=== PATIENT | female | born 1970 | race Caucasian/White ===

== ENCOUNTER 2023-08-15 07:10 | Outpatient (OUT) | payer BC, SELFPAY ==
[2023-08-15 08:06] LABS: Basophils Absolute Auto 0.1 10^3/uL (0.0-0.1); Basophils Percent Auto 1.2 % (0.2-2.0); Eosinophils Absolute Auto 0.2 10^3/uL (0.0-0.7); Eosinophils Percent Auto 4.3 % (0.9-7.0); Hemoglobin 12.9 g/dL (12.0-16.0); Immature Granulocytes Abs Auto 0.01 10^3/uL (0.00-0.03); Immature Granulocytes Pct Auto 0.2 % (0.0-0.5); Lymphocytes Absolute Auto 1.7 10^3/uL (1.2-3.8); Lymphocytes Percent Auto 41.4 % (20.5-60.0); Mean Corpuscular HGB Conc 32.3 g/dL (29.9-35.2); Mean Corpuscular Hemoglobin 29.1 pg (26.7-34.0); Mean Corpuscular Volume 90.3 fL (81.0-99.0); Mean Platelet Volume 10.5 fL (9.5-13.5); Monocytes Absolute Auto 0.4 10^3/uL (0.3-0.8); Monocytes Percent Auto 9.6 % (1.7-12.0); Neutrophils Absolute Auto 1.8 10^3/uL (1.4-6.5); Neutrophils Percent Auto 43.3 % (43.0-75.0); Platelet Count 268 10^3/uL (150-450); Red Blood Count 4.43 10^6/uL (4.20-5.40); Red Cell Distribution Width 13.4 % (11.0-15.0); White Blood Count 4.2 10^3/uL (4.0-11.0)
[2023-08-15 08:13] LABS: Alanine Aminotransferase 23 U/L (14-59); Albumin Globulin Ratio 1.1; Albumin Level 3.6 g/dL (3.4-5.0); Alkaline Phosphatase 64 U/L (46-116); Anion Gap 12.2; Aspartate Amino Transferase 12 U/L (15-37); BUN Creatinine Ratio 12.8; Bilirubin Total 0.5 mg/dL (0.2-1.0); Calcium 8.3 mg/dL (8.5-10.1); Chloride 107 mmol/L (98-107); Chol HDL Ratio 2.3; Cholesterol 177 mg/dL (<=200); Estimated GFR (African America >60 (>=60); Estimated GFR (Non-African Ame >60 (>=60); Globulin 3.3 g/dL; Glucose 94 mg/dL (74-106); HDL Cholesterol 77 mg/dL (40-60); Potassium 4.2 mmol/L (3.5-5.1); Sodium 144 mmol/L (136-145); Total Protein 6.9 g/dL (6.4-8.2); Triglycerides 129 mg/dL (<=150); VLDL CHOLESTEROL 25.8 mg/dL
[2023-08-15 08:29] LABS: Free T4 1.26 ng/dL (0.76-1.46)
== END 2023-08-15 07:11 | disposition home or self-care (01) ==
LOC: LAB 07:15
DX: Z00.00 Encounter for general adult medical examination without abnormal findings (principal); E07.9 Disorder of thyroid, unspecified
CPT/HCPCS: 36415; 80053; 80061; 84439; 84443; 85025

== ENCOUNTER 2024-03-23 13:58 | Outpatient (OUT) | payer BC, SELFPAY | END 2024-03-23 13:59 | disposition home or self-care (01) | LOC: MN 13:59 | DX: R63.4 Abnormal weight loss (principal); Z68.38 Body mass index [BMI] 38.0-38.9, adult | CPT/HCPCS: 97802 ==

== ENCOUNTER 2024-06-19 10:57 | Emergency (ER) | payer BC, SELFPAY ==
[2024-06-19] VITALS (10 sets, daily range): BP systolic 138–193; BP diastolic 82–95; PULSE 59–72; TEMP 36.2; O2SAT 99–100; BMI 37.8
--- NOTE | 2024-06-19 11:10 | ECG_ITS ---
[facility] Test Date: 2024-06-19 Pat Name: RAIMUNDO RODRIGUEZ Department: Room: - Gender: Female [employer] D[employer]: : 1970 Requested By: [id number] Order Number: [id number] Reading MD: SHWETHA SELBY Measurements Intervals [place] Rate: 69 P: 46 ND: 190 QRS: 23 QRSD: 88 T: 37 QT: 398 QTc: 416 Interpretive Statements 1100 Sinus rhythm 8102 Low QRS voltage in chest leads 9120 atypical ECG Electronically Signed On 06-21-2024 12:37:59 EDT by SHWETHA SELBY
[2024-06-19 11:35] LABS: Basophils Absolute Auto 0.1 10^3/uL (0.0-0.1); Basophils Percent Auto 1.5 % (0.2-2.0); Eosinophils Absolute Auto 0.2 10^3/uL (0.0-0.7); Eosinophils Percent Auto 4.9 % (0.9-7.0); Hematocrit 40.4 % (36.0-48.0); Hemoglobin 13.4 g/dL (12.0-16.0); Immature Granulocytes Abs Auto 0.01 10^3/uL (0.00-0.03); Immature Granulocytes Pct Auto 0.2 % (0.0-0.5); Lymphocytes Percent Auto 43.3 % (20.5-60.0); Mean Corpuscular HGB Conc 33.2 g/dL (29.9-35.2); Mean Corpuscular Volume 87.4 fL (81.0-99.0); Mean Platelet Volume 10.8 fL (9.5-13.5); Monocytes Absolute Auto 0.4 10^3/uL (0.3-0.8); Monocytes Percent Auto 8.4 % (1.7-12.0); Neutrophils Percent Auto 41.7 % (43.0-75.0); Platelet Count 251 10^3/uL (150-450); Red Blood Count 4.62 10^6/uL (4.20-5.40); Red Cell Distribution Width 13.4 % (11.0-15.0); White Blood Count 4.7 10^3/uL (4.0-11.0)
[2024-06-19 11:44] LABS: Alanine Aminotransferase 23 U/L (14-59); Albumin Level 3.5 g/dL (3.4-5.0); Alkaline Phosphatase 73 U/L (46-116); Anion Gap 13.8; Aspartate Amino Transferase 20 U/L (15-37); BUN Creatinine Ratio 8.8; Bilirubin Total 0.8 mg/dL (0.2-1.0); Calcium 8.9 mg/dL (8.5-10.1); Carbon Dioxide 25.9 mmol/L (21.0-32.0); Chloride 104 mmol/L (98-107); Estimated GFR (African America >60 (>=60 mL/min/1.73m^2); Estimated GFR (Non-African Ame >60 (>=60 mL/min/1.73m^2); Globulin 3.5 g/dL; Glucose 77 mg/dL (74-106); Potassium 3.7 mmol/L (3.5-5.1); Sodium 140 mmol/L (136-145)
[2024-06-19 11:46] LABS: Troponin I High Sensitivity <4.0 pg/mL (4.0-51.3)
--- NOTE | 2024-06-19 11:59 | CT_ITS ---
[address] [address] Patient Name: RAIMUNDO RODRIGUEZ MRN: [id number] date: 1970 Sex: F Assigned Patient Location: ER Current Patient Location: Accession/Order Number: [id number] Exam Date: 06/19/2024 12:09 Report Date: 06/19/2024 13:39 At the request of: PARDEEP EL Procedure: CT head/brain wo con CT head without contrast, 06/19/2024. HISTORY: Blurred vision. Headache. COMPARISON: None. TECHNIQUE: Noncontrast axial CT images obtained through the head. Reconstructions obtained in the sagittal and coronal planes. Dose reduction techniques were achieved by using automated exposure control and/or adjustment of mA and/or kV according to patient size and/or use of iterative reconstruction technique. FINDINGS: Paranasal sinuses clear. Mastoid air cells clear. Skull base intact. No skull lesion. Extracranial soft tissue structures are unremarkable. No hydrocephalus. No mass effect. No shift of midline. No acute hemorrhage. No mass. Crowley matter and white matter differentiation intact. CT/CT head/brain wo con IMPRESSION: Normal CT of the head. No acute findings. Electronically authenticated by: CHRISTINE CHO Date: 06/19/2024 13:39
--- NOTE | 2024-06-19 11:59 | ED.GENADUL1 ---
HPI HPI - General Adult General Chief complaint: Chest Pain Stated complaint: HIGH BLOOD PRESSURE Time Seen by Provider: 06/19/24 11:17 Source: patient Mode of arrival: walk-in Limitations: no limitations History of Present Illness HPI narrative: Patient have no previous known past medical history is coming to the ER with a right-sided headache according to her it was stabbing, noted that she have also elevated blood pressure at home, the patient started yelling yesterday at someone at work and apparently started having the headache while she was angry She denies any nausea vomiting or any other complaint and she mentioned that she had some blurry vision yesterday when she was angry The patient denies any chest pain at any time also denies any history of high blood pressure Related Data Allergies Allergy/AdvReac Type Severity Reaction Status Date / Time No Known Drug Allergies Allergy Verified 06/19/24 11:02 Opioid HPI Opioid Management Most Recent Opioid Data: No Data to Display Review of Systems ROS Status of ROS 10 or more systems reviewed and unremarkable except as noted in history and below PFSH PFSH Social History Little interest or pleasure in doing things: not at all Feeling down, depressed, or hopeless: not at all Exam Narrative Exam Narrative: Nurses notes and vital signs reviewed and patient is not hypoxic. General: Well-appearing and in no apparent distress. Skin: Warm, dry, no pallor noted. No rash. Head: Normocephalic, atraumatic. Neck: Supple, non-tender. Eye: No scleral icterus. Ears, Nose, Mouth, and Throat: TM are clear, no nasal mucosal hypertrophy. Oral mucosa is moist, no posterior oropharynx erythema, uvula is mid-line Cardiovascular: Regular Rate and Rhythm without murmur, gallop or rub. Respiratory: No accessory muscle use or respiratory distress. Lungs are clear to auscultation, no wheezing, rales or rhonchi Chest Wall: no tenderness Back: No midline thoracic or lumbar vertebral tenderness. No CVA tenderness Musculoskeletal: normal ROM, no calf or popliteal tenderness, no lower extremity edema/swelling GI: Abdomen is soft, non-distended. Normal bowel sounds. No masses appreciated. No tenderness to palpation. No rebound, guarding, or rigidity noted. Neurological: A&O x4. No cranial nerve dysfunction observed. No truncal ataxia. Moves all extremities. Sensation intact. Psychiatric: Cooperative and interactive. Normal mood and affect. Constitutional Vital Signs, click to edit/add: Last Vital Signs Temp 97.2 F L 06/19/24 11:02 Pulse 70 06/19/24 12:14 Resp 11 L 06/19/24 12:14 BP 138/82 06/19/24 12:00 Pulse Ox 100 06/19/24 12:14 O2 Del Method Room Air 06/19/24 11:02 Course Vital Signs Vital signs: Vital Signs Temperature 97.2 F L 06/19/24 11:02 Pulse Rate 69 06/19/24 11:02 Respiratory Rate 18 06/19/24 11:02 Blood Pressure 193/95 H 06/19/24 11:02 Pulse Oximetry 100 06/19/24 11:02 Oxygen Delivery Method Room Air 06/19/24 11:02 Temperature 97.2 F L 06/19/24 11:02 Pulse Rate 70 06/19/24 12:14 Respiratory Rate 11 L 06/19/24 12:14 Blood Pressure 138/82 06/19/24 12:00 Pulse Oximetry 100 06/19/24 12:14 Oxygen Delivery Method Room Air 06/19/24 11:02 Medical Decision Making [facility] Narrative Medical decision making narrative: The patient EKG showing sinus rhythm with a heart rate of [address] elevation or depression CBC and chemistry showed no acute pathology and the patient CT head is negative for any acute pathology The patient feeling better after initial treatment although the patient will continue to take pain medication mostly ibuprofen for the right side neck pain The patient also was instructed about monitoring her blood pressure and following up with her primary care doctor for further evaluation The patient is to follow up with primary care physician in next 2-3 days or to return to the emergency department should any of the signs or symptoms worsen or new symptoms develop. The patient agrees with the following Diagnosis and Treatment plan and the patient will be discharged home. Lab Data Labs: Lab Results 06/19/24 Range/Units 11:15 WBC 4.7 (4.0-11.0) 10^3/uL RBC 4.62 (4.20-5.40) 10^6/uL Hgb 13.4 (12.0-16.0) g/dL Hct 40.4 (36.0-48.0) % MCV 87.4 (81.0-99.0) fL MCH 29.0 (26.7-34.0) pg MCHC 33.2 (29.9-35.2) g/dL RDW 13.4 (11.0-15.0) % Plt Count 251 (150-450) 10^3/uL MPV 10.8 (9.5-13.5) fL Neut % (Auto) 41.7 L (43.0-75.0) % Lymph % (Auto) 43.3 (20.5-60.0) % [place] % (Auto) 8.4 (1.7-12.0) % Eos % (Auto) 4.9 (0.9-7.0) % Baso % (Auto) 1.5 (0.2-2.0) % Neut # (Auto) 2.0 (1.4-6.5) 10^3/uL Lymph # (Auto) 2.0 (1.2-3.8) 10^3/uL [place] # (Auto) 0.4 (0.3-0.8) 10^3/uL Eos # (Auto) 0.2 (0.0-0.7) 10^3/uL Baso # (Auto) 0.1 (0.0-0.1) 10^3/uL Abs Immat Gran (auto) 0.01 (0.00-0.03) 10^3/uL Imm/Tot Granulo (auto) 0.2 (0.0-0.5) % Sodium 140 (136-145) mmol/L Potassium 3.7 (3.5-5.1) mmol/L Chloride 104 (98-107) mmol/L Carbon Dioxide 25.9 (21.0-32.0) mmol/L Anion Gap 13.8 BUN 8.0 (7.0-18.0) mg/dL Creatinine 0.91 (0.55-1.02) mg/dL Est GFR ( Amer) >60 (>=60 mL/min/1.73m^2) Est GFR (Non-Af Amer) >60 (>=60 mL/min/1.73m^2) BUN/Creatinine Ratio 8.8 Glucose 77 (74-106) mg/dL Calcium 8.9 (8.5-10.1) mg/dL Total Bilirubin 0.8 (0.2-1.0) mg/dL AST 20 (15-37) U/L ALT 23 (14-59) U/L Alkaline Phosphatase 73 (46-116) U/L Troponin I High Sens <4.0 L (4.0-51.3) pg/mL Total Protein 7.0 (6.4-8.2) g/dL Albumin 3.5 (3.4-5.0) g/dL Globulin 3.5 g/dL Albumin/Globulin Ratio 1.0 Discharge Plan Discharge Chief Complaint: Chest Pain Clinical Impression: Headache Patient Disposition: Home, Self-Care Time of Disposition Decision: 12:44 Condition: Good Print Language: Syriac Instructions: Acute Headache (DC) Referrals: Physician,Non-Staff, MD [Primary Care Provider] - 1 week
[2024-06-19] MEDS: KETOROLAC TROMETHAMINE 30 MG/ML VIAL 15 MG IVP (12:16)
== END 2024-06-19 12:57 | disposition home or self-care (01) ==
PROVIDERS: Emergency Provider Emergency Medicine
DX: R51.9 Headache, unspecified (principal)
CPT/HCPCS: 36415; 70450; 80053; 84484; 85025; 93005; 96374; 99284; J1885